=== PATIENT | female | born 1950 | race African-American/Black ===

== ENCOUNTER 2018-04-20 07:35 | Day surgery (SDC) | payer MEDICARE ==
[~2018-04-20] VITALS: Ht 172.7 cm; Wt 91.6 kg
[~2018-04-20 07:35] MED LIST: BAYER ASPIRIN E81 MG PO; CALCIUM600 M2 PO; FERRAPLUS 90 PO; FISH OIL1000 MG PO; FUROSEMIDE20 MG PO; LORAZEPAM0.5 MG PO; NEXIUM20 M1 PO; OMEPRAZOLE20 M1 PO; VITAMI16 PO; ZOCOR20 MG OR
[2018-04-20] MEDS ORDERED: MOTRIN800 MG PO (11:42)
[2018-04-20 11:50] VITALS: BP 140/79
== END 2018-04-20 12:12 | disposition home or self-care (01) ==
LOC: ORM 07:35
PROVIDERS: ATTEND Surgery
PROC: 0JB70ZZ Excision of Back Subcutaneous Tissue and Fascia, Open Approach (ICD-10-PCS; principal; 2018-04-20)
DX: D17.1 Benign lipomatous neoplasm of skin and subcutaneous tissue of trunk (principal); E78.00 Pure hypercholesterolemia, unspecified

== ENCOUNTER 2022-01-03 10:55 | Emergency (ER) | payer MEDICARE ==
[~2022-01-03] VITALS: Ht 172.7 cm; Wt 105.0 kg
[~2022-01-03 10:55] MED LIST changes: +COLACE100 MG PO; +MOTRIN800 MG PO
[2022-01-03 11:00] VITALS: BP 146/93
[2022-01-03 11:15] VITALS: BP 125/86
[2022-01-03 11:31] LABS: HEMATOCRIT 35.6 % (37.0-47.0); HEMOGLOBIN 11.3 g/dl (12.0-16.0); IMMATURE GRANULOCYTES 0.1 % (0.0-5.0); MEAN CELL VOLUME 76.7 fL CALC (80.0-100.0); MEAN CORPUSCULAR HGB 24.4 pG CALC (26.0-32.0); MEAN CORPUSCULAR HGB CONC 31.7 g/dL CAL (32.0-36.0); NEUT# 4.46 thou/uL (2.00-7.15); RED BLOOD COUNT 4.64 mill/uL (4.20-5.60); RED CELL DISTRI WIDTH 15.9 % (11.5-15.5)
[2022-01-03 11:51] LABS: ALBUMIN 4.2 g/dL (3.2-5.0); BILIRUBIN, TOTAL 0.4 mg/dL (0.0-1.4); CREATININE 1.4 mg/dL (0.5-1.0); POTASSIUM 3.9 mmol/l (3.5-5.1); TOTAL PROTEIN 7.9 g/dL (6.3-8.2)
[2022-01-03 12:19] LABS: URINE BILIRUBIN - DIPSTICK NEGATIVE (NEGATIVE); URINE BLOOD DIPSTICK LARGE (NEGATIVE); URINE COLOR YELLOW; URINE GLUCOSE - DIPSTICK NEGATIVE (NEGATIVE); URINE KETONE NEGATIVE (NEGATIVE); URINE LEUK ESTERASE TRACE (NEGATIVE); URINE PH 6.5 (4.5-8.0); URINE PROTEIN - DIPSTICK NEGATIVE (NEG-TRACE); URINE UROBILINOGEN - DIPSTICK 0.2 E.U./dL (0.2)
[2022-01-03 12:22] LABS: URINE NITRITE - DIPSTICK NEGATIVE (Negative)
[2022-01-03 12:25] LABS: URINE RBC >100 RBC/hpf (0-5); URINE SQUAMOUS EPITHELIAL CELL FEW EPI/hpf (0-FEW); URINE WBC 0-2 WBC/hpf (0-5)
[2022-01-03] MEDS ORDERED: TAMSULOSIN0.4 MG PO (12:32)
[2022-01-03] MEDS ORDERED: HYDROCO/APAP1 TA9 PO (12:32)
[2022-01-03 12:41] VITALS: BP 125/86
== END 2022-01-03 12:59 | disposition home or self-care (01) ==
LOC: ED 10:55
PROVIDERS: Family Medicine
DX: N20.1 Calculus of ureter (principal); I25.10 Atherosclerotic heart disease of native coronary artery without angina pectoris; E78.5 Hyperlipidemia, unspecified; Z88.2 Allergy status to sulfonamides

== ENCOUNTER 2024-10-31 08:10 | Emergency (ER) | payer OTHER, MEDICARE ==
[2024-10-31] VITALS (7 sets, daily range): BP systolic 119–130; BP diastolic 72–81
[~2024-10-31] VITALS: Ht 172.7 cm; Wt 81.0 kg
[~2024-10-31 08:10] MED LIST changes: +HYDROCO/APAP1 TA9 PO; +TAMSULOSIN0.4 MG PO
[2024-10-31] MEDS ORDERED: EC-NAPROXEN500 MG PO (09:20)
[2024-10-31] MEDS ORDERED: FLEXERIL5 M1 PO (09:20)
== END 2024-10-31 09:42 | disposition home or self-care (01) | DRG 552 ==
LOC: ED 08:10
DX: M54.2 Cervicalgia (principal); R51.9 Headache, unspecified; I25.10 Atherosclerotic heart disease of native coronary artery without angina pectoris; E78.5 Hyperlipidemia, unspecified; V43.52XA Car driver injured in collision with other type car in traffic accident, initial encounter